=== PATIENT | male | born 1980 | race Caucasian/White ===

== ENCOUNTER 2020-11-30 13:42 | Emergency (ER) | payer SELFPAY ==
[2020-11-30] MEDS ORDERED: Ketorolac Tromethamine 30 MG/ML VIAL ONE (15:07)
[2020-11-30] MEDS ORDERED: methylPREDNISolone Sod Succ/PF 125 MG/2 ML VIAL ONE (15:07)
[2020-11-30] MEDS ORDERED: Ondansetron PF 4 MG/2 ML Vial ONE (15:07)
[2020-11-30 16:29] LABS: #Basophils 0.1 thou/uL (0.0-0.2); #Lymphocytes 0.4 thou/uL (1.20-3.40); #Monocytes 0.5 thou/uL (0.11-0.59); #Neutrophils 8.7 thou/uL (1.40-6.50); %Basophils 1.4 % (0.0-1.0); %Monocytes 4.6 % (0.0-10.0); Hemoglobin 14.8 g/dL (14.0-18.0); Mean Corpuscular HGB CONC 34.5 g/dL (32.0-36.0); Mean Corpuscular Hemoglobin 30.5 pg (27.0-31.0); Mean Corpuscular Volume 88.5 fL (78.0-98.0); Mean Platelet Volume 7.8 fL (7.4-10.4); Platelet Count 146 thou/uL (130-400); RBC Distribution Width 11.1 % (11.5-14.5); Red Blood Cell (RBC) Count 4.86 mill/uL (4.70-6.10); White Blood Cell (WBC) Count 9.7 thou/uL (4.8-10.8)
[2020-11-30 16:38] LABS: INR-International Normal Ratio 1.2; PTT 26.7 sec (22.9-36.1); Prothrombin Time 15.2 sec (12.0-14.7)
[2020-11-30 16:40] LABS: Base Excess-Venous -4.5 mmol/L (-2.0 to 3.0); Bicarbonate (HCO3v) 22.6 mmol/L (22.0-28.0); CO2 Tension (PvCO2) 47.8 mmHg (42.0-51.0); Calcium, Ionized 1.09 mmol/L (1.15-1.33); Chloride 105 mmol/L (98-107); Hemoglobin - Calc 14.9 g/dL (14.0-18.0); Sodium 138 mmol/L (138-145); vO2 Saturation-calc 51.4 % (60.0-85.0)
[2020-11-30 16:46] LABS: ALT (SGPT) 18 U/L (8-55); AST (SGOT) 17 U/L (5-34); Albumin 3.4 g/dL (3.5-5.0); Alkaline Phosphatase 51 U/L (40-110); Anion Gap 19 mmol/L (10-20); BUN (Urea Nitrogen) 12 mg/dL (8.9-20.6); Bilirubin, Total 0.5 mg/dL (0.2-1.2); Calc. Creatinine Clearance 0 mL/min (70-130); Calcium 8.6 mg/dL (7.8-10.44); Carbon Dioxide 21 mmol/L (22-29); Chloride 102 mmol/L (98-107); Globulin 3.6 g/dL (2.4-3.5); Glucose 307 mg/dL (70-105); Potassium 4.1 mmol/L (3.5-5.1); Sodium 138 mmol/L (136-145)
[2020-11-30] MEDS ORDERED: Aspirin Chewable 81 MG TAB ONE (17:17)
[2020-11-30 21:50] LABS: Hemoglobin A1c 13.9 % (4.0-6.0)
[2020-12-01] MEDS ORDERED: Ondansetron PF 4 MG/2 ML Vial ONE (00:53)
== END 2020-12-01 01:09 | disposition short-term general hospital (02) ==
LOC: BURERS 13:42 → UNDOADMIN 16:53 → BURMED 16:53 → UNDODISIN 12-01 01:00 → BURERS 12-01 01:09
DX: U07.1 COVID-19 (principal)
CPT/HCPCS: 36415; 71045; 80053; 82330; 82803; 83036; 83880; 84484; 85025; 85610; 85730; 94640; 94760; 96374; 96375; 96376; J1885; J2405; J2930; J7620